=== PATIENT | male | born 1975 | race Caucasian/White ===

== ENCOUNTER 2020-08-16 07:06 | Emergency (ER) | payer MEDICAID, OTHER ==
[~2020-08-16] VITALS: Ht 177.8 cm; Wt 95.3 kg
[2020-08-16] MEDS ORDERED: FLUORESCEIN SOD OPTH TEST STRIP EACHEYE ONE (08:30)
[2020-08-16] MEDS ORDERED: NEOMYCIN-POLYMY-DEXAMETH 0.1% OPTH(EYE) OINT 3.5GM EACHEYE ONE (08:30)
[2020-08-16] MEDS ORDERED: PROPARACAINE HCL 0.5% OPTH(EYE) SOL 15ML OP ONE (08:30)
[2020-08-16] MEDS ORDERED: TETRACAINE HCL 0.5% OPTH(EYE) SOLN 4ML EACHEYE ONE (08:45)
[2020-08-16 10:53] VITALS: BP 118/84
== END 2020-08-16 11:04 | disposition home or self-care (01) ==
LOC: ER 07:06
DX: H16.143 Punctate keratitis, bilateral (principal); F17.210 Nicotine dependence, cigarettes, uncomplicated; W89.0XXA Exposure to welding light (arc), initial encounter; Y93.89 Activity, other specified; Y92.89 Other specified places as the place of occurrence of the external cause; Y99.8 Other external cause status